=== PATIENT | female | born 1995 | race Caucasian/White ===

== ENCOUNTER 2017-02-21 12:04 | Emergency (ER) | payer OTHER ==
--- NOTE | 2017-02-21 13:42 | DIAGNOSTIC IMAGING REPORT ---
PROCEDURE: XR ABDOMEN 1 VIEW UPRIGHT INDICATION: ABDOMINAL PAIN TECHNIQUE: Single view upright abdomen. COMPARISON: None. FINDINGS: No free intraperitoneal air. Nonspecific, nonobstructive bowel gas pattern. No suspicious mass, mass effect, or calcifications. The visible osseous structures are intact. IMPRESSION: 1. Normal single view abdomen.
--- NOTE | 2017-02-21 14:46 | DIAGNOSTIC IMAGING REPORT ---
PROCEDURE: US COMPLETE PELVIC W/TRANSVAG INDICATION: PAIN TECHNIQUE: Transabdominal and endovaginal brown scale and color Doppler sonographic images of the female pelvis were obtained. COMPARISON: None. FINDINGS: TRANSABDOMINAL SCANS: Anteverted uterus measures 5.6 x 3.5 x 5.1 cm. Normal kidneys. TRANSVAGINAL SCANS: Myometrium is unremarkable. Small Nabothian cyst. Normal endometrium measures 8-0.8 mm. Right ovary measures 3.1 x 1.8 x 2.2 cm and left ovary 2.4 x 1 x 2.2 cm. There are small follicles bilaterally within a 9 mm dominant follicle in the left ovary. There is vascular flow to both ovaries. There is no adnexal mass. Trace free fluid the cul-de-sac. IMPRESSION: 1. Normal pelvic ultrasound
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
--- NOTE | 2017-02-21 15:26 | ED ORDER SUMMARY ---
..... Patient: LOKESH STONE OrderSheet [facility] VisitID: [id number] [place] [address] 21y, F Registration Date/Time: 02/21/2017 ORDER SHEET Weight: 77.1 kg Allergies: No Known Drug Allergy GENERAL ORDERS: CBC w Diff Urgent (12:32 02/21/2017 EBonham per protocol) (Ack 12:32 KHoerner) (12:47 EBonham) CMP Urgent (12:02/21/2017 EBonham per protocol) (Ack 12:32 KHoerner) (12:47 EBonham) UA-Culture if indicated Urgent (12:02/21/2017 EBonham per protocol) (Ack 12:32 KHoerner) (12:47 EBonham) Amylase Urgent (12:02/21/2017 EBonham per protocol) (Ack 12:32 KHoerner) (12:47 EBonham) Lipase Urgent (12:32 02/21/2017 EBonham per protocol) (Ack 12:32 KHoerner) (12:47 EBonham) Urine Urgent (12:02/21/2017 EBonham per protocol) (Ack 12:32 KHoerner) (12:47 EBonham) Urine Drug Screen Urgent (12:59 02/21/2017 Teresa TALLEY) (13:00 EBonham) (13:01 KHoerner) Abdomen 1V Upright Urgent (12:59 02/21/2017 Teresa TALLEY) (Ack 13:01 KHoerner) (14:56 KHoerner) US Pelvic Complete w Transvag Urgent (13:00 02/21/2017 Teresa TALLEY) (Ack 13:01 KHoerner) (14:56 KHoerner) MEDICATION ORDERS: IV FLUIDS: ORDER SHEET NOTES: [Electronically signed by Jomar Martinez MD (23:37 02/21/2017)] [Electronically signed by Pratima Mae R.N. (07:38 03/14/2017)] [Electronically locked/signed by Pratima Mae R.N. (07:38 03/14/2017)]
--- NOTE | 2017-02-21 15:26 | ED ORDER SUMMARY ---
..... Patient: LOKESH STONE OrderSheet [facility] VisitID: [id number] [place] [address] 21y, F Registration Date/Time: 02/21/2017 ORDER SHEET Weight: 77.1 kg Allergies: No Known Drug Allergy GENERAL ORDERS: CBC w Diff Urgent (12:32 02/21/2017 EBonham per protocol) (Ack 12:32 KHoerner) (12:47 EBonham) CMP Urgent (12:02/21/2017 EBonham per protocol) (Ack 12:32 KHoerner) (12:47 EBonham) UA-Culture if indicated Urgent (12:02/21/2017 EBonham per protocol) (Ack 12:32 KHoerner) (12:47 EBonham) Amylase Urgent (12:02/21/2017 EBonham per protocol) (Ack 12:32 KHoerner) (12:47 EBonham) Lipase Urgent (12:32 02/21/2017 EBonham per protocol) (Ack 12:32 KHoerner) (12:47 EBonham) Urine Urgent (12:02/21/2017 EBonham per protocol) (Ack 12:32 KHoerner) (12:47 EBonham) Urine Drug Screen Urgent (12:59 02/21/2017 Teresa TALLEY) (13:00 EBonham) (13:01 KHoerner) Abdomen 1V Upright Urgent (12:59 02/21/2017 Teresa TALLEY) (Ack 13:01 KHoerner) (14:56 KHoerner) US Pelvic Complete w Transvag Urgent (13:00 02/21/2017 Teresa TALLEY) (Ack 13:01 KHoerner) (14:56 KHoerner) MEDICATION ORDERS: IV FLUIDS: ORDER SHEET NOTES: [Electronically signed by Jomar Martinez MD (23:37 02/21/2017)] [Electronically signed by Pratima Mae R.N. (07:38 03/14/2017)] [Electronically locked/signed by Pratima Mae R.N. (07:38 03/14/2017)]
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
--- NOTE | 2017-03-14 07:39 | ED MAR SUMMARY ---
..... Medication Administration Record [facility] [address] [place], [place] [id number] Patient: LOKESH STONE Visit ID: [id number] 21y, F Weight: 77.1 kg Height/Length: 63 in BMI: 30.1 ALLERGIES: No Known Drug Allergy
--- NOTE | 2017-03-14 07:39 | ED MED RECONCILIATION SUMMARY ---
Patient: LOKESH STONE Medication Reconciliation Report [facility] VisitID: [id number] [address] [place] [address] 21y, F Registration Date/Time: 02/21/2017 Weight: 77.1 kg Height/Length: 63 in. BMI: 30.1 ALLERGIES: No Known Drug Allergy The patient's Home Medications are listed below: NONE. The source(s) of the original Home Medication information: Not obtained. The following Medications were given to the patient in the Emergency Department: None. The following Medications were prescribed to the patient: GoLytely 4 oz every 10 minutes until gone. # 1 jug. -- Jomar Martinez MD Oxycodone/APAP 5 mg/325 mg: take 1-2 tablets orally every 4 hours as needed for pain. Dispense ten (10). No refill. -- Jomar Martinez MD
--- NOTE | 2017-03-14 07:39 | ED DISCHARGE INSTRUCTIONS ---
Patient: LOKESH STONE General Instructions [facility] VisitID: [id number] [place] [address] 21y, F Registration Date/Time: 02/21/2017 Left lower quadrant abdominal pain of unknown cause. INSTRUCTIONS Take clear liquids only (frequent sips) until better. Warnings: Further evaluation is necessary. GENERAL WARNINGS: Return or contact your physician immediately if your condition worsens or changes unexpectedly, if not improving as expected, or if other problems arise. Prescription Medications: Oxycodone/APAP 5 mg/325 mg: take 1-2 tablets orally every 4 hours as needed for pain. Dispense ten (10). No refill. GoLytely 4 oz every 10 minutes until gone. # 1 jug. Follow-up: Follow up with your doctor in two days if not better. Understanding of the discharge instructions verbalized by patient. Discharge instructions reviewed with and understanding was verbalized by cloud engagement partner. ADDITIONAL INFORMATION Abdominal Pain, Unknown Cause (Female) The exact cause of your abdominal (stomach) pain is not certain. This does not mean that this is something to worry about, or the right tests were not done. Everyone likes to know the exact cause of the problem, but sometimes with abdominal pain, there is no clear-cut cause, and this could be a good thing. The good news is that your symptoms can be treated, and you will feel better. Your condition does not seem serious now; however, sometimes the signs of a serious problem may take more time to appear. For this reason,it is important for you to watch for any new symptoms, problems,or worsening of your condition. Over the next few days, the abdominal pain may come and go, or be continuous. Other common symptoms can include nausea and vomiting. Sometimes it can be difficult to tell if you feel nauseous, you may just feel bad and not associate that feeling with nausea. Constipation, diarrhea, and a fever may go along with the pain. The pain may continue even if treated correctly over the following days. Depending on how things go, sometimes the cause can become clear and may require further or different treatment. Additional evaluations, medications, or tests may be needed. Home care Your health care provider may prescribe medications for pain, symptoms, or an infection. Follow the health care provider's instructions for taking these medications. General care Rest until your next exam. No strenuous activities. Try to find positions that ease discomfort. A small pillow placed on the abdomen may help relieve pain. Something warm on your abdomen (such as a heating pad) may help, but be careful not to burn yourself. Diet Do not force yourself to eat, especially if having cramps, vomiting, or diarrhea. Water is important so you do not get dehydrated. Soup may also be good. Sports drinks may also help, especially if they are not too acidic. Make sure you don't drink sugary drinks as this can make things worse. Take liquids in small amounts. Do not guzzle them. Caffeine sometimes makes the pain and cramping worse. Avoid dairy products if you have vomiting or diarrhea. Don't eat large amounts at a time. Wait a few minutes between bites. Eat a diet low in fiber (called a low-residue diet). Foods allowed include refined breads, white rice, fruit and vegetable juices without pulp, tender meats. These foods will pass more easily through the intestine. Avoid whole-grain foods, whole fruits and vegetables, meats, seeds and nuts, fried or fatty foods, dairy, alcohol and spicy foods until your symptoms go away. Follow-up care Follow up with your health care provider as instructed, or if your pain does not begin to improve in the next 24 hours. When to seek medical care Seek prompt medical care if any of the following occur: Pain gets worse or moves to the right lower abdomen New or worsening vomiting or diarrhea Swelling of the abdomen Unable to pass stool for more than three days Fever of 100.4F (38C) or higher, or as directed by your healthcare provider. Blood in vomit or bowel movements (dark red or black color) Jaundice (yellow color of eyes and skin) Weakness, dizziness Chest, arm, back, neck or jaw pain Unexpected vaginal bleeding or missed period Call 911 Call emergency services if any of the following occur: Trouble breathing Confusion Fainting or loss of consciousness Rapid heart rate Seizure Clear Liquid Diet Clear liquids are any liquid that you can see through as well as those that are very easy to digest. This is used while the body is recovering from irritation or infection of the stomach or intestinal tract. It may also be used before special procedures or surgery. This diet is to be used no more than three days. You may include the following items. Adults Adults should drink a total of 23 quarts of liquid per day. It may be easier to drink small frequent servings rather than a few large ones. Liquids can include: Fruit juices.Strained orange juice or lemonade (no pulp), apple, grape and cranberry juice, clear fruit drinks, sports drinks Beverages.Sport drinks, sodas, mineral water (plain or flavored), tea, black coffee, liquid gelatin (add twice the recommended amount of water) Soups.Clear broth, consomm, bouillon Desserts.Plain gelatin, popsicles, fruit juice bars Children Over 2 years old The following liquids are acceptable for children over age 2: Fruit juices.Strained orange juice or lemonade (no pulp), apple, grape and cranberry juice, clear fruit drinks Beverages. Sports drinks, sodas, mineral water (plain or flavored), tea, liquid gelatin (add twice the recommended amount of water) Soups. Clear broth, consomm, bouillon Desserts. Plain gelatin, popsicles, fruit juice bars Children under 2 years old Oral rehydration fluids such are available at drug stores and most grocery stores without a prescription. Oxycodone Hydrochloride, Acetaminophen Oral tablet What is this medicine? ACETAMINOPHEN; OXYCODONE (a set a SUSANNE patrice fen; ox i KOE done) is a pain reliever. It is used to treat mild to moderate pain. How should I use this medicine? Take this medicine by mouth with a full glass of water. Follow the directions on the prescription label. Take your medicine at regular intervals. Do not take your medicine more often than directed. Talk to your block sawyer regarding the use of this medicine in children. Special care may be needed. Patients over 65 years old may have a stronger reaction and need a smaller dose. What side effects may I notice from receiving this medicine? Side effects that you should report to your doctor or health pet caregiver as soon as possible: allergic reactions like skin rash, itching or hives, swelling of the face, lips, or tongue breathing difficulties, wheezing confusion light headedness or fainting spells severe stomach pain yellowing of the skin or the whites of the eyes Side effects that usually do not require medical attention (report to your doctor or health pet caregiver if they continue or are bothersome): dizziness drowsiness nausea vomiting What may interact with this medicine? alcohol antihistamines barbiturates like amobarbital, butalbital, butabarbital, methohexital, pentobarbital, phenobarbital, thiopental, and secobarbital benztropine drugs for bladder problems like solifenacin, trospium, oxybutynin, tolterodine, hyoscyamine, and methscopolamine drugs for breathing problems like ipratropium and tiotropium drugs for certain stomach or intestine problems like propantheline, homatropine methylbromide, glycopyrrolate, atropine, belladonna, and dicyclomine general anesthetics like etomidate, ketamine, nitrous oxide, propofol, desflurane, enflurane, halothane, isoflurane, and sevoflurane medicines for depression, anxiety, or psychotic disturbances medicines for sleep muscle relaxants naltrexone narcotic medicines (opiates) for pain phenothiazines like perphenazine, thioridazine, chlorpromazine, mesoridazine, fluphenazine, prochlorperazine, promazine, and trifluoperazine scopolamine tramadol trihexyphenidyl What if I miss a dose? If you miss a dose, take it as soon as you can. If it is almost time for your next dose, take only that dose. Do not take double or extra doses. Where should I keep my medicine? Keep out of the reach of children. This medicine can be abused. Keep your medicine in a safe place to protect it from theft. Do not share this medicine with anyone. Selling or giving away this medicine is dangerous and against the law. Store at room temperature between 20 and 25 degrees C (68 and 77 degrees F). Keep container tightly closed. Protect from light. This medicine may cause accidental overdose and if it is taken by other adults, children, or pets. Flush any unused medicine down the toilet to reduce the chance of harm. Do not use the medicine after the expiration date. What should I tell my health care provider before I take this medicine? They need to know if you have any of these conditions: brain tumor Crohn's disease, inflammatory bowel disease, or ulcerative colitis drink more than 3 alcohol containing drinks per day drug abuse or addiction head injury heart or circulation problems kidney disease or problems going to the bathroom liver disease lung disease, asthma, or breathing problems an unusual or allergic reaction to acetaminophen, oxycodone, other opioid analgesics, other medicines, foods, dyes, or preservatives or trying to get breast-feeding What should I watch for while using this medicine? Tell your doctor or health pet caregiver if your pain does not go away, if it gets worse, or if you have new or a different type of pain. You may develop tolerance to the medicine. Tolerance means that you will need a higher dose of the medication for pain relief. Tolerance is normal and is expected if you take this medicine for a long time. Do not suddenly stop taking your medicine because you may develop a severe reaction. Your body becomes used to the medicine. This does NOT mean you are addicted. Addiction is a behavior related to getting and using a drug for a non-medical reason. If you have pain, you have a medical reason to take pain medicine. Your doctor will tell you how much medicine to take. If your doctor wants you to stop the medicine, the dose will be slowly lowered over time to avoid any side effects. You may get drowsy or dizzy. Do not drive, use machinery, or do anything that needs mental alertness until you know how this medicine affects you. Do not stand or sit up quickly, especially if you are an older patient. This reduces the risk of dizzy or fainting spells. Alcohol may interfere with the effect of this medicine. Avoid alcoholic drinks. There are different types of narcotic medicines (opiates) for pain. If you take more than one type at the same time, you may have more side effects. Give your health care provider a list of all medicines you use. Your doctor will tell you how much medicine to take. Do not take more medicine than directed. Call emergency for help if you have problems breathing. The medicine will cause constipation. Try to have a bowel movement at least every 2 to 3 days. If you do not have a bowel movement for 3 days, call your doctor or health pet caregiver. Do not take Tylenol (acetaminophen) or medicines that have acetaminophen with this medicine. Too much acetaminophen can be very dangerous. Many nonprescription medicines contain acetaminophen. Always read the labels carefully to avoid taking more acetaminophen. You have been given the following additional information: Abdominal Pain, Unknown Cause, (Female) Diet, Clear Liquid Oxycodone Hydrochloride, Acetaminophen Oral tablet (Electronically signed by Jomar Martinez MD 02/21/2017 23:37)
--- NOTE | 2017-03-14 07:39 | ED MED RECONCILIATION SUMMARY ---
Patient: LOKESH STONE Medication Reconciliation Report [facility] VisitID: [id number] [address] [place] [address] 21y, F Registration Date/Time: 02/21/2017 Weight: 77.1 kg Height/Length: 63 in. BMI: 30.1 ALLERGIES: No Known Drug Allergy The patient's Home Medications are listed below: NONE. The source(s) of the original Home Medication information: Not obtained. The following Medications were given to the patient in the Emergency Department: None. The following Medications were prescribed to the patient: GoLytely 4 oz every 10 minutes until gone. # 1 jug. -- Jomar Martinez MD Oxycodone/APAP 5 mg/325 mg: take 1-2 tablets orally every 4 hours as needed for pain. Dispense ten (10). No refill. -- Jomar Martinez MD
--- NOTE | 2017-03-14 07:39 | ED MAR SUMMARY ---
..... Medication Administration Record [facility] [address] [place], [place] [id number] Patient: LOKESH STONE Visit ID: [id number] 21y, F Weight: 77.1 kg Height/Length: 63 in BMI: 30.1 ALLERGIES: No Known Drug Allergy
== END 2017-02-21 15:30 | disposition home or self-care (01) ==
LOC: ED SRH 12:04
DX: R10.32 Left lower quadrant pain (principal); M54.5 Low back pain
CPT/HCPCS: 90004; 90100; 90469; 92235; 92530; 92760; 92761; 92762; 92763; 92764; 92765; 92766; 92767; 93070; 95059